=== PATIENT | male | born 1990 | race Caucasian/White ===

== ENCOUNTER 2024-05-21 15:31 | Emergency (ER) | payer OTHER ==
[~2024-05-21] VITALS: Ht 177.8 cm; Wt 118.0 kg
[~2024-05-21 15:31] MED LIST: ABILIFY5 MG PO; GABAPENTIN300 MG PO; KLONOPIN0.5 MG PO; NICOTINE PATCH1 EAC4 TD; PRAZOSIN HCL1 MG PO
[2024-05-21] MEDS ORDERED: AMOX TR-K CLV1 EAC1 PO (16:01)
[2024-05-21] MEDS ORDERED: METHYLPHENIDATE54 MG PO (16:02)
--- OUTSIDE RECORDS SUMMARY | 2024-05-21 16:52 | XMS ---
PreManage Notification: ALLISON GANDHI Security [employer] Events No recent Security Events currently on file CRITERIA MET - 6 ED Visits in 6 Months - [facility] - 2 Visits in 30 Days CARE PROVIDERS -[facility]ist: [facility] PHONE: [phone] -, [facility]ist: [facility]ocker [facility] PHONE: [phone] -, [place]- Dentist: Smocker [facility] PHONE: [phone] EDWARD [facility]/Center: [facility], [facility] \[facility] PHONE: [phone] Jak has no Care Guidelines for this patient. Guillermo VISIT COUNT (12 MO.) 4 Edward Enamorado ([facility]) 2 [facility] [place] [facility] [facility] [place] TOTAL 7 NOTE: Visits indicate total known visits. ED/UCC VISIT TRACKING (12 MO.) 05/21/2024 16:51 [facility] [place] TYPE: Emergency COMPLAINT: - RECHECK 05/21/2024 08:37 [facility] [place] TYPE: Emergency COMPLAINT: - DENTAL PROBLEM 12/11/2023 17:41 [facility] [place] [facility] TYPE: Emergency COMPLAINT: - RIGHT ARM PAIN DIAGNOSES: - Pain in arm, unspecified - Arm Pain - RIGHT ARM PAIN 12/04/2023 14:32 Edward [place] ([facility]) TYPE: Emergency DIAGNOSES: - Displaced fracture of neck of unspecified metacarpal bone, subsequent encounter for fracture with routine healing - Hand Pain 12/03/2023 11:32 Edward [place] ([place]) TYPE: Emergency DIAGNOSES: - Hand Injury - Hand Pain 11/25/2023 21:25 Edward Sh[place] ([place]) TYPE: Emergency DIAGNOSES: - Nondisplaced fracture of shaft of fifth metacarpal bone, right hand, initial encounter for closed fracture - Nondisplaced fracture of shaft of fourth metacarpal bone, right hand, initial encounter for closed fracture - Unspecified fracture of unspecified metacarpal bone, initial encounter for closed fracture - Hand Injury 08/22/2023 12:43 Edward [place] ([place]) TYPE: Emergency DIAGNOSES: - Laceration without foreign body of left little finger without damage to nail, initial encounter - Finger Laceration - Finger Pain INPATIENT VISIT TRACKING (12 MO.) No inpatient visits to display in this time frame [id number]
[2024-05-21 17:42] VITALS: BP 134/80
[2024-05-21] MEDS ORDERED: BUPRENORPHINE HC8 MG SL (23:30)
[2024-05-22] MEDS ORDERED: NARCAN4 MG NAS (17:05)
== END 2024-05-21 17:42 | disposition home or self-care (01) ==
LOC: ED 15:31
DX: K02.9 Dental caries, unspecified (principal); Z79.899 Other long term (current) drug therapy
CPT/HCPCS: 99282

== ENCOUNTER 2024-05-22 08:41 | Emergency (ER) | payer OTHER ==
[~2024-05-22 08:41] MED LIST changes: +AMOX TR-K CLV1 EAC1 PO; +BUPRENORPHINE HC8 MG SL; +METHYLPHENIDATE54 MG PO
--- OUTSIDE RECORDS SUMMARY | 2024-05-22 08:42 | XMS ---
PreManage Notification: ALLISON GANDHI Security [employer] Events No recent Security Events currently on file CRITERIA MET - 6 ED Visits in 6 Months - [facility] - 2 Visits in 30 Days CARE PROVIDERS -[facility] Dentist: Stevedore Hold [facility] PHONE: [phone] -, [facility]ONE: [phone] -, [place]- Dentist: Stevedore Hold [facility] PHONE: [phone] EDWARD [facility]/Center: [facility], [facility] \[facility] PHONE: [phone] Jak has no Care Guidelines for this patient. Guillermo VISIT COUNT (12 MO.) 4 CARLOS Ribeiro 4 Edward Enamorado ([facility]) 1 [facility] TOTAL 9 NOTE: Visits indicate total known visits. ED/UCC VISIT TRACKING (12 MO.) 05/22/2024 08:42 [facility] [place] TYPE: Emergency COMPLAINT: - MOUTH PAIN 05/21/2024 23:22 [facility] [place] TYPE: Emergency COMPLAINT: - POSS OVERDOSE 05/21/2024 16:[address] [facility] TYPE: Emergency COMPLAINT: - RECHECK 05/21/2024 08:[address] [facility] [place] TYPE: Emergency COMPLAINT: - DENTAL PROBLEM 12/11/2023 17:41 [facility] TYPE: Emergency COMPLAINT: - RIGHT ARM PAIN DIAGNOSES: - Pain in arm, unspecified - Arm Pain - RIGHT ARM PAIN 12/04/2023 14:32 Edward [place] ([employer]) TYPE: Emergency DIAGNOSES: - Displaced fracture of neck of unspecified metacarpal bone, subsequent encounter for fracture with routine healing - Hand Pain 12/03/2023 11:32 Edward AMADO [place] ([employer]) TYPE: Emergency DIAGNOSES: - Hand Injury - Hand Pain 11/25/2023 21:25 Edward [place] ([employer]) TYPE: Emergency DIAGNOSES: - Nondisplaced fracture of shaft of fifth metacarpal bone, right hand, initial encounter for closed fracture - Nondisplaced fracture of shaft of fourth metacarpal bone, right hand, initial encounter for closed fracture - Unspecified fracture of unspecified metacarpal bone, initial encounter for closed fracture - Hand Injury 08/22/2023 12:43 Edward AMADO [place] ([place] ) TYPE: Emergency DIAGNOSES: - Laceration without foreign body of left little finger without damage to nail, initial encounter - Finger Laceration - Finger Pain INPATIENT VISIT TRACKING (12 MO.) No inpatient visits to display in this time frame [id number]
[2024-05-22] MEDS ORDERED: KETOROLAC TROMETHAMINE 15 MG/ML VIAL IV ONE (09:00)
[2024-05-22] MEDS ORDERED: CLINDAMYCIN PHOSPHATE/D5W 600 MG/50 ML BAG IV ONE (09:00)
[2024-05-22] MEDS ORDERED: SODIUM CHLORIDE 0.9% 1,000 ML IV PRN ×2 (09:00→11:00)
[2024-05-22] MEDS ORDERED: ondansetron HCL 4 MG/2 ML VIAL IV ONE (09:00)
[2024-05-22 09:29] LABS: PH, VENOUS 7.391 (7.31-7.41)
[2024-05-22 09:30] LABS: BASOPHILS 0.3 % (0-2); EOSINOPHILS 0.5 % (0-6); HEMATOCRIT 44.9 % (35.0-50.0); HEMOGLOBIN 14.8 g/dL (12.0-18.0); LYMPHOCYTES 7.4 % (24-44); MCH 30.1 (27-36); MCHC 33.1 g/dl (30-36); MONOCYTES 4.6 % (0-12); NEUTROPHILS 87.2 % (39-80); PLATELET COUNT 292 K/uL (140-440); RBC 4.93 M/ul (4.3-5.7); RDW 14.6 (10.5-15.0)
[2024-05-22 10:40] LABS: ALBUMIN 3.5 g/dL (3.4-5.0); ALBUMIN/GLOBULIN RATIO 1.09 (1.1-2.4); ALCOHOL, MEDICAL <3 ng/dL (<3); ALKALINE PHOSPHATASE 64 U/L (46-116); ALT (SGPT) 111 U/L (14-59); ANION GAP 14.2 (7-21); AST (SGOT) 69 U/L (15-37); BILIRUBIN, TOTAL 0.4 ng/dL (0.2-1.0); BUN/CREATININE RATIO 17.64 (6.0-28.6); CALCIUM 8.1 mg/dL (8.5-10.1); CARBON DIOXIDE 26 mmol/L (21-32); CHLORIDE 109 mmol/L (98-107); CREATINE KINASE 1373 U/L (39-308); CREATININE, SERUM 1.02 mg/dL (0.70-1.30); GLOMERULAR FILTRATION RATE,EST 98 mL/min (>60); POTASSIUM 4.2 mmol/L (3.5-5.1); PROTEIN, TOTAL 6.7 g/dL (6.4-8.2); UREA NITROGEN 18 mg/dL (7-18)
[2024-05-22 11:26] LABS: BILIRUBIN, URINE NEGATIVE (negative); BLOOD/HGB, URINE NEGATIVE (Negative); KETONE, URINE NEGATIVE (Negative); LEUK ESTERASE, URINE NEGATIVE (negative); NITRITE, URINE NEGATIVE (negative)
[2024-05-22 11:42] LABS: AMPHETAMINES, URINE NEGATIVE (NEGATIVE); BARBITURATES, URINE NEGATIVE (NEGATIVE); BENZODIAZEPINE, URINE NEGATIVE (NEGATIVE); BUPRENORPHINE, URINE NEGATIVE (NEGATIVE); CANNABINOID, URINE NEGATIVE (NEGATIVE); COCAINE, URINE NEGATIVE (NEGATIVE); ECSTASY, URINE NEGATIVE (NEGATIVE); FENTANYL, URINE NEGATIVE (NEGATIVE); METHADONE, URINE POSITIVE (NEGATIVE); OPIATES, URINE NEGATIVE (NEGATIVE); OXYCODONE, URINE NEGATIVE (NEGATIVE); PHENCYCLIDINE, URINE NEGATIVE (NEGATIVE)
[2024-05-22] MEDS ORDERED: NARCAN4 MG NAS (17:05)
[2024-05-22 18:47] VITALS: BP 137/77
--- NOTE | 2024-05-23 13:24 | EKG ---
[facility] [address] [place], [place] [address] Signed Normal sinus rhythm Normal ECG When compared with ECG of 22-MAY-2024 10:15, (Unconfirmed) No significant change was found Confirmed by TANYA JENKINS MD ([id number]) on 05/23/2024 1:24:22 PM Electronically Signed By: TANYA JENKINS 05/23/24 1324 PATIENT NAME: ALLISON GANDHI Electrocardiogram DATE OF : 86 PHYSICIAN: TANYA JENKINS REPORT #: [id number] REPORT IS CONFIDENTIAL AND NOT TO BE RELEASED WITHOUT AUTHORIZATION
--- NOTE | 2024-05-23 13:25 | EKG ---
[facility] [address] [place], [place] [address] Signed Normal sinus rhythm Normal ECG No previous ECGs available Confirmed by TANYA JENKINS MD ([id number]) on 05/23/2024 1:24:52 PM Electronically Signed By: TANYA JENKINS 05/23/24 1325 PATIENT NAME: ALLISON GANDHI Electrocardiogram DATE OF : 86 PHYSICIAN: TANYA JENKINS REPORT #: [id number] REPORT IS CONFIDENTIAL AND NOT TO BE RELEASED WITHOUT AUTHORIZATION
== END 2024-05-22 18:40 | disposition home or self-care (01) ==
LOC: ED 08:41
PROVIDERS: Emergency Medicine
DX: T40.2X1A Poisoning by other opioids, accidental (unintentional), initial encounter (principal); R41.82 Altered mental status, unspecified; R74.8 Abnormal levels of other serum enzymes; R79.89 Other specified abnormal findings of blood chemistry; G93.40 Encephalopathy, unspecified; J96.90 Respiratory failure, unspecified, unspecified whether with hypoxia or hypercapnia; R74.01 Elevation of levels of liver transaminase levels; F11.10 Opioid abuse, uncomplicated; F20.9 Schizophrenia, unspecified; Z79.899 Other long term (current) drug therapy
CPT/HCPCS: 36415; 71045; 80053; 80307; 81003; 82140; 82553; 82803; 83605; 84484; 85025; 93005; 93010; 96374; 96375; 99285-25; G0480; J1885; J2405; J7030